=== PATIENT | female | born 1980 | race American Indian/Alaskan Native ===

== ENCOUNTER 2016-11-21 11:50 | Day surgery (SDC) | payer MEDICAID ==
[2016-11-21] MEDS ORDERED: DIPRIVAN 10 MG/ML IV ONE (13:14)
--- NOTE | 2016-11-21 13:42 | Post Anesthesia Evaluation ---
- Post Anesthesia Evaluation Patient Participated: Yes Airway Patent: Yes Stable Respiratory Function: Yes Nausea/Vomiting: No Temp > 96.8F: Yes Pain Manageable: Yes Adequeate Hydration: Yes Anesthesia Complications: No Block Receding Appropriately: Not Applicable Patient on Ventilator: No
[2016-11-21 13:59] VITALS: BP 125/68
[2016-11-21] MEDS ORDERED: NACL 0.9% 1000 ML 1,000 ML IV SCH (14:00)
--- NOTE | 2016-11-21 14:24 | Operative Report ---
Operative Report Operative Report: Date of procedure: 11/21/2016 Procedure: Esophagogastroduodenoscopy multiple mucosal biopsies. Attending physician: Moi Wei MD Accuracy Expert: Moi Wei MD Indication: Patient is a 36-year-old female who presented history of epigastric pain heartburn and indigestion. An upper endoscopy is done to evaluate patient so treatment may be directed based on the findings. Consent: Informed consent was obtained after advising the patient and family regarding nature of this procedure, its indications, potential benefits as well as possible complications including but not limited to bleeding perforation and adverse reaction to medication, infection as well as other cardiopulmonary complications. An informed written and verbal consent was then obtained after due opportunity was provided for questions and answers. Monitoring: Patient was monitored continuously with pulse oximetry and electrocardiographic recordings as well as blood pressure recordings. Vital signs remained stable throughout this procedure with no untoward events. Preoperative assessment: Patient was assessed immediately prior to this procedure for capacity to tolerate monitored anesthesia care and moderate sedation as well as general anesthesia. Patient's ASA classification is 2, Mallampati class is 2, Hyomental distance is 3. Instrument: OY LX Therapiesn video endoscope Medications: Propofol given intravenously in divided doses. For details of his refer to anesthesia records. Description of procedure: Patient was placed in the left lateral decubitus position after achieving sedation, the endoscope was introduced into the esophagus under direct vision. It was then advanced beyond the esophagus into the stomach and then beyond the stomach into the duodenum and to the second portion of the duodenum. It was subsequently withdrawn with careful inspection of all mucosal surfaces with the following findings. Findings: The Z line was irregular at 38 cm. There was a 2 cm sliding hiatal hernia seen on entering to the stomach. There was gastric antral erythema with surrounding mucosal edema. Biopsies of the antrum were obtained for histopathology. The duodenum was normal to second portion. Impression: Irregular Z line Hiatal hernia Gastric antral erythema. Plan: Continue treatment proton pump inhibitors Observe antireflux measures Keep head of bed elevated 30 in the evenings. Follow pathology report and direct additional treatment based on the pathology report.
--- NOTE | 2016-11-21 14:24 | Discharge Summary ---
Short Stay Discharge Plan Activity: advance as tolerated Weight Bearing Status: Weight Bear as Tolerated Diet: regular Additional Instructions: Post Sedation D/C Instructions When you return home you may resume your regular diet unless otherwise directed. -Go directly home from the hospital and rest quietly. You may resume normal activities tomorrow. -Do NOT drive, return to work, operate any machinery or make any important personal or business decisions today. -Do NOT drink any alcohol or take nerve or sleeping drugs. They add to the effects of the medicine still present in your body. Follow up with Dr. Wei in 2 weeks to receive pathology results and treatment plan. Follow up with: PRIMARY [facility]ARE, [Primary Care Provider] - 7 Days
--- NOTE | 2016-11-21 15:05 | Anesthesia Day of Surgery ---
Anesthesia Day of Surgery - Day of Surgery Patient Examined: Yes Patient H&P Reviewed: Yes Patient is NPO: Yes
--- NOTE | 2016-11-21 15:07 | Anesthesia Consultation ---
Anesthesia Consult and Med Hx Date of service: 11/21/16 - Airway Anesthetic Teeth Evaluation: Chipped (front tooth upper) ROM Head & Neck: Adequate Mental/Hyoid Distance: Adequate Mallampati Class: Class III Intubation Access Assessment: Probably Good - Pulmonary Exam CTA: Yes - Cardiac Exam Cardiac Exam: RRR - Pre-Operative Health Status ASA Pre-Surgery Classification: ASA3 Proposed Anesthetic Plan: MAC - Pulmonary Hx Smoking: Yes (former) Hx Sleep Apnea: No - Cardiovascular System Hx Hypertension: Yes - Central Nervous System Hx Psychiatric Problems: Yes (depression) - Endocrine Hx Hypothyroidism: Yes - Other Systems Hx Cancer: No Hx Obesity: Yes - Additional Comments Anesthesia Medical History Comments: NAC
== END 2016-11-21 11:51 | disposition home or self-care (01) ==
LOC: GIO 11:50
PROVIDERS: ATTEND Internal Medicine Gastroenterology
DX: K22.8 Other specified diseases of esophagus (principal); K44.9 Diaphragmatic hernia without obstruction or gangrene; F41.9 Anxiety disorder, unspecified; F32.9 Major depressive disorder, single episode, unspecified; I10 Essential (primary) hypertension; K21.9 Gastro-esophageal reflux disease without esophagitis; E03.9 Hypothyroidism, unspecified; E66.9 Obesity, unspecified; Z68.39 Body mass index [BMI] 39.0-39.9, adult; Z79.899 Other long term (current) drug therapy; Z88.8 Allergy status to other drugs, medicaments and biological substances; Z87.891 Personal history of nicotine dependence
CPT/HCPCS: 43239; 81025; 88305; 88342; J2704

== ENCOUNTER 2016-12-05 11:54 | Day surgery (SDC) | payer MEDICAID ==
--- NOTE | 2016-12-05 12:33 | Anesthesia Consultation ---
Anesthesia Consult and Med Hx Date of service: 12/05/16 - Airway Anesthetic Teeth Evaluation: Chipped (front left tooth) ROM Head & Neck: Adequate Mental/Hyoid Distance: Adequate Mallampati Class: Class II Intubation Access Assessment: Probably Good - Pulmonary Exam CTA: Yes - Cardiac Exam Cardiac Exam: RRR - Pre-Operative Health Status ASA Pre-Surgery Classification: ASA3 Proposed Anesthetic Plan: MAC - Pulmonary Hx Smoking: Yes (former) COPD: Yes (Bronchitis hx, last inhaler use 2 days ago ) - Cardiovascular System Hx Hypertension: Yes - Central Nervous System Hx Psychiatric Problems: Yes (depression) - Endocrine Hx Thyroid Disease: Yes Hx Hypothyroidism: Yes - Other Systems Hx Obesity: Yes
--- NOTE | 2016-12-05 12:34 | Anesthesia Day of Surgery ---
Anesthesia Day of Surgery - Day of Surgery Patient Examined: Yes Patient H&P Reviewed: Yes Patient is NPO: Yes Beta Blockers: Yes
[2016-12-05] MEDS ORDERED: NACL 0.9% 1000 ML 1,000 ML IV SCH (13:00)
[2016-12-05] MEDS ORDERED: DIPRIVAN 10 MG/ML IV ONE ×2 (13:35)
[2016-12-05] MEDS ORDERED: WATER FOR IRRIG STERILE ONE ×2 (14:08→14:16)
--- NOTE | 2016-12-05 14:33 | Operative Report ---
Operative Report Operative Report: Date of procedure: 12/05/2016 Procedure: Colonoscopy Attending physician: Moi Wei MD Data Typist: Moi Wei MD Indication: Patient is a 36-year-old female who presents with a history of altered bowel habits with abdominal pain with progressive constipation and bloating. This procedure is done to evaluate patient so that treatment may be directed based on the findings. Consent: Informed consent was obtained after advising the patient and family regarding nature of this procedure, its indications, potential benefits as well as possible complications including but not limited to bleeding perforation and adverse reaction to medication, infection as well as other cardiopulmonary complications. An informed written and verbal consent was then obtained after due opportunity was provided for questions and answers. Monitoring: Patient was monitored continuously with pulse oximetry and electrocardiographic recordings as well as blood pressure recordings. Vital signs remained stable throughout this procedure with no untoward events. Preoperative assessment: Patient was assessed immediately prior to this procedure for capacity to tolerate monitored anesthesia care and moderate sedation as well as general anesthesia. Patient's ASA classification is 2, Mallampati class is 2, Hyomental distance is 3. Instrument: G.I. Windowsn videocolonoscope Medications: Propofol given intravenously in divided doses. For details please refer to anesthesia records. Description of procedure: Patient was placed in the left lateral decubitus position after achieving sedation, a digital rectal examination was performed following which the colonoscope was introduced into the anal verge and advanced to the cecum which was identified by the cecal valve, the appendiceal orifice, as well as by the cecal strap and direct transillumination. The colonoscope was subsequently withdrawn with careful inspection of all mucosal surfaces. Patient tolerated this procedure well and was subsequently taken to the recovery room. The following findings were noted. Findings: There was scattered thick liquid stool in various sections of the colon. There were no gross mucosal abnormalities seen. The colonoscopic preparation however was relatively poor. On the retroflex view at the anal verge, patient had internal hemorrhoids. Impression: Poor colonoscopic preparation. Internal hemorrhoids. No gross mucosal abnormalities seen on this examination except for substantial retained thick liquid stool. Plan: High-fiber diet. Use as needed stool softeners and laxatives. Additional steps will be taken in close outpatient follow-up.
--- NOTE | 2016-12-05 14:34 | Discharge Summary ---
Short Stay Discharge Plan Activity: advance as tolerated Weight Bearing Status: Weight Bear as Tolerated Diet: regular Follow up with: PRIMARY CARE, [Primary Care Provider] - 7 Days
[2016-12-05 14:54] VITALS: BP 130/80
== END 2016-12-05 11:55 | disposition home or self-care (01) ==
LOC: GIO 11:54
PROVIDERS: ATTEND Internal Medicine Gastroenterology
DX: K64.8 Other hemorrhoids (principal); J44.9 Chronic obstructive pulmonary disease, unspecified; I10 Essential (primary) hypertension; F41.9 Anxiety disorder, unspecified; F32.9 Major depressive disorder, single episode, unspecified; E03.9 Hypothyroidism, unspecified; E66.9 Obesity, unspecified; Z68.38 Body mass index [BMI] 38.0-38.9, adult; Z87.891 Personal history of nicotine dependence; Z88.8 Allergy status to other drugs, medicaments and biological substances; Z79.899 Other long term (current) drug therapy
CPT/HCPCS: 45378; 81025; J2704; J7030